=== PATIENT | female | born 1980 | race Caucasian/White ===

== ENCOUNTER 2019-08-07 10:21 | Emergency (ER) | payer MEDICAID ==
[~2019-08-07] VITALS: Ht 167.6 cm; Wt 60.0 kg
[2019-08-07 11:22] VITALS: BP 126/76
[2019-08-07] MEDS ORDERED: BENZONATATE 100 MG CAPSULE PO ONE (11:30)
== END 2019-08-07 13:43 | disposition home or self-care (01) ==
LOC: EDBD 10:23 → EMS 10:23
DX: J06.9 Acute upper respiratory infection, unspecified (principal)